=== PATIENT | female | born 1990 | race Caucasian/White ===

== ENCOUNTER 2018-02-05 18:16 | Emergency (ER) | payer OTHER ==
[2018-02-05 18:28] VITALS: BP 132/78; PULSE 90; RESP 18; TEMP 98; O2SAT 100
[2018-02-05 19:12] LABS: BASO % 0.6 % (0.0-2.0); EOS # 0.3 K/uL (0.0-0.7); EOS % 3.1 % (0.0-4.0); HEMOGLOBIN 13.1 g/dL (12.0-16.0); LYMPH # 2.8 K/uL (1.0-4.3); LYMPH % 34.3 % (20.0-40.0); MEAN CELL VOLUME 89.1 fl (81.0-99.0); MEAN CORPUSCULAR HEMOGLOBIN 29.9 pg (27.0-31.0); MEAN CORPUSCULAR HGB CONC 33.6 g/dL (33.0-37.0); MONO # 0.5 K/uL (0.0-0.8); MONO % 5.5 % (0.0-10.0); NEUT # 4.7 K/uL (1.8-7.0); NEUT % 56.5 % (50.0-75.0); RBC 4.37 Mil/uL (3.80-5.20); WHITE BLOOD COUNT 8.3 K/uL (4.8-10.8)
[2018-02-05 19:27] LABS: BLOOD UREA NITROGEN 15 mg/dl (7-17); CALCIUM 9.8 mg/dL (8.4-10.2); GFR AFRICAN-AMERICAN > 60; GFR NON-AFRICAN AMERICAN > 60
[2018-02-05 19:47] LABS: PARTIAL THROMBOPLASTIN TIME 33.2 Seconds (25.6-37.1); PROTHROMBIN TIME 11.5 Seconds (9.8-13.1)
--- NOTE | 2018-02-05 19:54 | ED PDOC ---
HPI: Female Pain Time Seen by Provider: 02/05/18 18:40 Chief Complaint (Nursing): Female Genitourinary Chief Complaint (Provider): Vaginal Bleeding History Per: Patient History/Exam Limitations: no limitations Onset/Duration Of Symptoms: Hrs Current Symptoms Are (Timing): Still Present Severity: None Quality Of Discomfort: denies: Cramping, "Pain" Associated Symptoms: denies: Nausea, Vomiting, Back Pain Alleviating Factors: None Additional Complaint(s): 27 year old female at 8 weeks presents to the emergency department to be evaluated for vaginal bleeding. The patient states that she bled through 1 pad and noticed bright red bloody without clots. She reports that she is scheduled for her first visit with her OBGYN on February 15. Denies recent illness , trauma, cramping. Patient states that her first was without complications. Abnormal Vaginal Bleeding: Yes Past Medical History Reviewed: Historical Data, Nursing Documentation, Vital Signs Vital Signs: Last Vital Signs Temp 98 F 02/05/18 18:25 Pulse 90 02/05/18 18:25 Resp 18 02/05/18 18:25 BP 132/78 02/05/18 18:25 Pulse Ox 100 02/05/18 18:25 - Medical History PMH: No Chronic Diseases - Surgical History Surgical History: No Surg Hx - Family History Family History: States: Unknown Family Hx - Living Arrangements Living Arrangements: With Family - Social History Current smoker - smoking cessation education provided: No Ex-Smoker (has not smoked in the last 12 months): No Alcohol: None Drugs: Denies - Immunization History Hx Tetanus Toxoid Vaccination: No - Home Medications Home Medications: Ambulatory Orders Medication Instructions Recorded No Known Home Med 02/05/18 - Allergies Allergies/Adverse Reactions: Allergies Allergy/AdvReac Type Severity Reaction Status Date / Time No Known Allergies Allergy Verified 02/05/18 18:25 Review of Systems ROS Statement: Except As Marked, All Systems Reviewed And Found Negative Gastrointestinal: Negative for: Nausea, Vomiting Genitourinary Female: Positive for: Vaginal Bleeding. Negative for: Vaginal Discharge, Pelvic Pain Physical Exam - Reviewed Nursing Documentation Reviewed: Yes Vital Signs Reviewed: Yes - Physical Exam Appears: Positive for: Non-toxic, No Acute Distress Head Exam: Positive for: ATRAUMATIC, NORMOCEPHALIC Skin: Positive for: Warm, Dry. Negative for: Pallor Eye Exam: Positive for: EOMI, PERRL Neck: Positive for: Painless ROM, Supple Gastrointestinal/Abdominal: Positive for: Bowel Sounds, Soft. Negative for: Tenderness, Mass, Distended, Guarding, Rebound Extremity: Positive for: Normal ROM. Negative for: Deformity Neurologic/Psych: Positive for: Alert, Oriented - Laboratory Results Result Diagrams: 02/05/18 19:08 02/05/18 19:08 - ECG O2 Sat by Pulse Oximetry: 100 (RA) Pulse Ox Interpretation: Normal Medical Decision Making Medical Decision Makin Initial Impression 27 y/o female presenting with vaginal bleeding first trimester Differentials: Ectopic , Threatened , Blighted ovum/ inevitable miscarriage Initial Plan: * BBK * BMP * Beta-HCG,Quantitative * Upreg * Udip * CBC * Partial thromboplastin * Prothrombin Time * Chlamydia/GC RNA * US OB Transvaginal * Reevaluation EXAM: US First Trimester, Transabdominal US , Transvaginal CLINICAL HISTORY: 27 years old, female; Signs and symptoms; Lmp or gestational age (in weeks): 12/08/2017 irregular periods; Other: Started bleeding today; ; Additional info: Vaginal bleeding TECHNIQUE: Real-time transabdominal and transvaginal obstetrical ultrasound of the maternal pelvis and a first trimester with image documentation. Transvaginal imaging was used for better evaluation of the fetus and adnexa. COMPARISON: No relevant prior studies available. FINDINGS: Gestation: No intrauterine gestational sac. Uterus/cervix: Retroverted uterus. Endometrium: Up to 2.9 cm in thickness, heterogeneous without significant internal vascularity. Closed cervix. Ovaries: Normal ovaries. No adnexal masses. Free fluid: Small free fluid within pelvis. IMPRESSION: 1. No intrauterine gestation. DDX: Early IUP, missed , ectopic . 2. Thickened, heterogeneous endometrium. RPOC not excluded. 3. Incidental/non-acute findings are described above. Thank you for allowing us to participate in the care of your patient. Dictated and Authenticated by: Panchito Ortega MD 02/05/2018 9:41 PM Eastern Time ([place] & [place]) DW pt findings and need for further evaluation to determine if symptoms c/w miscarriage or early . Option are to follow up with her spine nurse, follow up with [facility] or return to ER for repeat bloodwork. Bleeding instructions given as well. Documented by Judi Whitehead acting as a scribe for Keren Morgan MD. All medical record entries made by the Scribe were at my direction and personally dictated by me. I have reviewed the chart and agree that the record accurately reflects my personal performance of the history, physical exam, medical decision making, and the department course for this patient. I have also personally directed, reviewed, and agree with the discharge instructions and disposition. Disposition - Clinical Impression Clinical Impression: Threatened miscarriage Counseled Patient/Family Regarding: Studies Performed, Diagnosis, Need For Followup - Disposition Referrals: [facility] [Outside] (CALL YOUR PROFESSOR OF PHYSICS TOMORROW TO SETUP FOLLOW UP APPOINTMENT. YOU NEED A REPEAT [facility] (BLOODWORK) IN 48-72 HOURS. [facility] CAN ALSO ASSIST WITH FOLLOW UP APPOINTMENT OR YOU CAN COME TO ER IN 48- 72 HOURS IF UNABLE TO FOLLOW UP.) Disposition: Routine/Home Disposition Time: 22:00 Condition: STABLE Additional Instructions: DRINK PLENTY OF HYDRATING FLUIDS AND REST AVOID STRENUOUS ACTIVITY AND PELVIC REST (NO SEX, NO TAMPONS, NOTHING IN VAGINA ) UNTIL YOU FOLLOW UP WITH PROFESSOR OF PHYSICS RETURN TO ER IMMEDIATELY FOR BLEEDING MORE THAN ONE PAD AN HOUR, SEVERE PAIN, FAINTING OR NEAR FAINTING, OR ANY OTHER WORRISOME SYMPTOMS Instructions: Threatened Miscarriage Forms: [facility] ED School/Work Excuse
--- NOTE | 2018-02-06 10:41 | US ---
HISTORY: Vaginal bleeding. LMP 12/08/2017. Beta HCG results: 189.7 COMPARISON: None available. TECHNIQUE: Transvaginal only. Real -time technique with 2D, duplex and color Doppler FINDINGS: UTERUS: Measures 5.2 x 7.3 x 9.4 cm. Normal in size and appearance. No fibroid or other mass lesion seen. ENDOMETRIUM: Measures 28.4 mm in diameter. Markedly thickened endometrium, heterogeneous echo characteristics. No evident gestational sac, yolk sac/ pole. CERVIX: Unremarkable. RIGHT OVARY: Measures 2 x 2.5 x 3.5 cm. No solid mass. Normal flow. LEFT OVARY: Measures 1.5 x 1.7 x 2.8 cm. No solid mass. Normal flow. FREE FLUID: Trace free fluid identified in the pelvis/cul de sac. OTHER FINDINGS: None. IMPRESSION: Markedly thickened heterogeneous endometrium without focal abnormality. Unremarkable adnexa. No visible ectopic gestation. Concordant results (preliminary interpretation) provided by [facility]. Procedure Completed: 21:15 Preliminary ([facility]) Report: Dictated and Authenticated: 21:41 Final Interpretation: 10:35
== END 2018-02-05 23:03 | disposition home or self-care (01) ==
LOC: H.ER 18:16
DX: O20.0 Threatened abortion (principal)